=== PATIENT | female | born 1975 ===

== ENCOUNTER 2017-07-08 14:38 | Emergency (ER) | payer BC ==
[2017-07-08 15:38] LABS: Hematocrit 37 % (35-47); Hemoglobin 12.3 g/dl (12.0-16.0); Mean Corpuscular HGB Conc 34 g/dl (31-36); Mean Corpuscular Hemoglobin 31 pg (27-31); Mean Corpuscular Volume 91 fL (80-97); Mean Platelet Volume 8 um3 (7.4-10.4); Red Blood Count 4.03 10^6/ul (4.0-5.4); Red Cell Distribution Width 13 % (10.5-15); White Blood Count 14.1 10^3/ul (3.5-10.8)
[2017-07-08 15:55] LABS: ALT 9 U/L (7-52); AST 13 U/L (13-39); Albumin 4.2 g/dL (3.2-5.2); Alkaline Phosphatase 53 U/L (34-104); Anion Gap 8 mmol/L (2-11); BUN/Creatinine Ratio 18.5 (8-20); Blood Urea Nitrogen 17 mg/dL (6-24); C Reactive Protein 57.99 mg/L (< 5.00); CO2 Carbon Dioxide 24 mmol/L (22-32); Calcium 9.1 mg/dL (8.6-10.3); Chloride 104 mmol/L (101-111); EGFR African American 86.5 (>60); EGFR Non-African American 67.3 (>60); Globulin 2.5 g/dL (2-4); Glucose 91 mg/dL (70-100); Lipase 24 U/L (11.0-82.0); Potassium 3.6 mmol/L (3.5-5.0); Sodium 136 mmol/L (133-145); Total Protein 6.7 g/dL (6.4-8.9)
[2017-07-08] MEDS ORDERED: Ketorolac INJ* 30 MG/ML 1 ML VIAL IV ONE (16:12)
[2017-07-08 16:45] LABS: Urine Bilirubin Negative (Negative); Urine Glucose Negative (Negative); Urine Nitrite Negative (Negative)
[2017-07-08] MEDS ORDERED: Iohexol 300* (CONTRAST) 10 ML SDV IV ONE (18:23)
[2017-07-08] MEDS ORDERED: HYDROmorphone INJ* 1 MG/ML CARPUJECT SYRINGE IV ONE (19:00)
[2017-07-08] MEDS ORDERED: Ondansetron INJ* 2 MG/ML VIAL IV ONE (19:00)
--- NOTE | 2017-07-08 19:06 | RAD ---
INDICATION: Right lower quadrant abdominal pain. COMPARISON: There are no prior studies available for comparison. TECHNIQUE: A CT scan of the abdomen and pelvis was performed with intravenous and oral contrast following intravenous injection of 84 ml of Omnipaque 300 nonionic contrast. Contiguous axial sections were obtained from the lung bases through the symphysis pubis. Images were reconstructed in the coronal and sagittal planes. FINDINGS: The lung bases are clear. No pleural effusion is present. The liver and spleen are within normal limits in size without significant focal abnormality. No calcified gallstones are seen. The pancreas appears to be within normal limits in size. The kidneys and adrenal glands are normal in size. No hydronephrosis is seen. No significant focal renal abnormality is seen. The aorta is normal in caliber with mild calcific plaque present. No significant enlarged retroperitoneal lymph nodes are seen. The stomach, small and large bowel appear nondistended. The appendix is within normal limits. There is wall thickening and mild interstitial stranding in the medial wall of the cecum approximately at the junction with the distal ileum. Differential diagnosis would include diverticulitis, ileitis or a mass. Recommend colonoscopy for further evaluation. The uterus is anteverted and normal in size. No free intraperitoneal air or fluid is seen. No significant focal osseous abnormality is seen. IMPRESSION: THERE IS WALL THICKENING AND MILD INTERSTITIAL STRANDING IN THE CECUM APPROXIMATELY AT THE JUNCTION WITH THE DISTAL ILEUM. DIFFERENTIAL DIAGNOSIS WOULD INCLUDE DIVERTICULITIS, ILEITIS OR A MASS. RECOMMEND COLONOSCOPY FOR FURTHER EVALUATION.
[2017-07-08] MEDS ORDERED: Ciprofloxacin TAB* 500 MG PO ONE (19:18)
[2017-07-08] MEDS ORDERED: metroNIDAZOLE TAB* 250 MG PO ONE (19:18)
[2017-07-08] MEDS ORDERED: oxyCODONE/Acetamin 5/325 MG* TAB ONE (19:27)
[2017-07-08 19:42] VITALS: BP 111/71
--- NOTE | 2017-07-08 19:44 | ED ---
Vitaly Livingston Tecjoon, scribed for Daniel Joy MD on 07/08/17 at 1515 . Abdominal Pain/Female - HPI Summary HPI Summary: This patient is a 42 year old female presenting to [facility] accompanied by family with a chief complaint of central abdominal pain since approximately 2 days ago. Patient says the pain has worsened recently and describes it as cramping, with sharp bursts. The pain is rated 5/10 in severity. Symptoms aggravated by palpation, moving, ambulation. Symptoms alleviated by nothing. Patient additionally reports vomiting, loss of appetite. Patient denies nausea. - History of Current Complaint Chief Complaint: EDAbdPain Stated Complaint: ABD PAIN Hx Obtained From: Patient Hx Last Menstrual Period: last week Onset/Duration: Lasting Days, Still Present, Worse Since - today Timing: Constant Severity Currently: Moderate Pain Intensity: 5 Pain Scale Used: 0-10 Numeric Location: Diffuse, Umbilical Character: Sharp, Cramping Aggravating Factor(s): Movement, Other: - palpation, ambulation Associated Signs and Symptoms: Positive: Vomiting. Negative: Nausea Allergies/Adverse Reactions: Allergies Allergy/AdvReac Type Severity Reaction Status Date / Time No Known Allergies Allergy Verified 07/08/17 14:50 PMH/Surg Hx/FS Hx/Imm Hx Previously Healthy: Yes GI History: Denies: Hx Cirrhosis Opthamlomology History: Denies: Hx Legally Blind EENT History: Denies: Hx Deafness Infectious Disease History: No Infectious Disease History: Denies: Hx Hepatitis, Traveled Outside the [place] in Last 30 Days - Family History Known Family History: Negative: Cardiac Disease, Hypertension, Diabetes - Social History Alcohol Use: Occasionally Hx Substance Use: Yes Substance Use Type: Reports: Cocaine Substance Use Comment - Amount & Last Used: occasionally Hx Tobacco Use: Yes Smoking Status (MU): Current Some Day Smoker Review of Systems Negative: Fever Positive: Abdominal Pain, Vomiting. Negative: Nausea All Other Systems Reviewed And Are Negative: Yes Physical Exam - Summary Physical Exam Summary: Appearance: The patient is well-nourished in no acute distress and in no acute pain. Skin: The skin is warm and dry and skin color reflects adequate perfusion. HEENT: The head is normocephalic and atraumatic. The pupils are equal and reactive. The conjunctivae are clear and without drainage. Nares are patent and without drainage. Mouth reveals moist mucous membranes and the throat is without erythema and exudate. The external ears are intact. The ear canals are patent and without drainage. The tympanic membranes are intact. Neck: the neck is supple with full range of motion and non-tender. There are no carotid bruits. There is no neck vein distension. Respiratory: Chest is non-tender. Lungs are clear to auscultation and breath sounds are symmetrical and equal. Cardiovascular: Heart is regular rate and rhythm. There is no murmur or rub auscultated. There is no peripheral edema and pulses are symmetrical and equal. Abdomen: There are normal bowel sounds heard in all four quadrants and there is no organomegaly palpated. There is tenderness in the RLQ and LLQ. Slight bounding. Musculoskeletal: There is no back tenderness noted. Extremities are non-tender with full range of motion. There is good capillary refill. There is no peripheral edema or calf tenderness elicited. Neurological: Patient is alert and oriented to person, place and time. The patient has symmetrical motor strength in all four extremities. Cranial nerves are grossly intact. Deep tendon reflexes are symmetrical and equal in all four extremities. Psychiatric: The patient has an appropriate affect and does not exhibit any anxiety or depression. Triage Information Reviewed: Yes Vital Signs On Initial Exam: Initial Vitals Temp Pulse Resp BP Pulse Ox 97.2 F 81 17 108/61 97 07/08/17 14:47 07/08/17 14:47 07/08/17 14:47 07/08/17 14:47 07/08/17 14:47 Vital Signs Reviewed: Yes - [place] Coma Scale Coma Scale Total: 15 Diagnostics - Vital Signs Vital Signs Temp Pulse Resp BP Pulse Ox 07/08/17 14:47 97.2 F 81 17 108/61 97 - Laboratory Lab Results: Lab Results 07/08/17 07/08/17 07/08/17 Range/Units 15:27 15:27 15:27 WBC 14.1 H (3.5-10.8) 10^3/ul RBC 4.03 (4.0-5.4) 10^6/ul Hgb 12.3 (12.0-16.0) g/dl Hct 37 (35-47) % MCV 91 (80-97) fL MCH 31 (27-31) pg MCHC 34 (31-36) g/dl RDW 13 (10.5-15) % Plt Count 324 (150-450) 10^3/ul MPV 8 (7.4-10.4) um3 Neut % (Auto) 78.5 (38-83) % Lymph % (Auto) 13.7 L (25-47) % [place] % (Auto) 6.5 (1-9) % Eos % (Auto) 0.8 (0-6) % Baso % (Auto) 0.5 (0-2) % Absolute Neuts (auto) 11.0 H (1.5-7.7) 10^3/ul Absolute Lymphs (auto) 1.9 (1.0-4.8) 10^3/ul Absolute Monos (auto) 0.9 H (0-0.8) 10^3/ul Absolute Eos (auto) 0.1 (0-0.6) 10^3/ul Absolute Basos (auto) 0.1 (0-0.2) 10^3/ul Absolute Nucleated RBC 0 10^3/ul Nucleated RBC % 0 Sodium 136 (133-145) mmol/L Potassium 3.6 (3.5-5.0) mmol/L Chloride 104 (101-111) mmol/L Carbon Dioxide 24 (22-32) mmol/L Anion Gap 8 (2-11) mmol/L BUN 17 (6-24) mg/dL Creatinine 0.92 (0.51-0.95) mg/dL Est GFR ( Amer) 86.5 (>60) Est GFR (Non-Af Amer) 67.3 (>60) BUN/Creatinine Ratio 18.5 (8-20) Glucose 91 (70-100) mg/dL Lactic Acid 1.3 (0.5-2.0) mmol/L Calcium 9.1 (8.6-10.3) mg/dL Total Bilirubin 0.40 (0.2-1.0) mg/dL AST 13 (13-39) U/L ALT 9 (7-52) U/L Alkaline Phosphatase 53 (34-104) U/L C-Reactive Protein 57.99 H (< 5.00) mg/L Total Protein 6.7 (6.4-8.9) g/dL Albumin 4.2 (3.2-5.2) g/dL Globulin 2.5 (2-4) g/dL Albumin/Globulin Ratio 1.7 (1-3) Lipase 24 (11.0-82.0) U/L Beta HCG, Quant < 0.60 mIU/mL Urine Color Urine Appearance Urine pH (5-9) Ur Specific [place] (1.010-1.030) Urine Protein (Negative) Urine Ketones (Negative) Urine Blood (Negative) Urine Nitrate (Negative) Urine Bilirubin (Negative) Urine Urobilinogen (Negative) Ur Leukocyte Esterase (Negative) Urine Glucose (Negative) Urine Ascorbic Acid (Negative) 07/08/17 Range/Units 16:36 WBC (3.5-10.8) 10^3/ul RBC (4.0-5.4) 10^6/ul Hgb (12.0-16.0) g/dl Hct (35-47) % MCV (80-97) fL MCH (27-31) pg MCHC (31-36) g/dl RDW (10.5-15) % Plt Count (150-450) 10^3/ul MPV (7.4-10.4) um3 Neut % (Auto) (38-83) % Lymph % (Auto) (25-47) % [place] % (Auto) (1-9) % Eos % (Auto) (0-6) % Baso % (Auto) (0-2) % Absolute Neuts (auto) (1.5-7.7) 10^3/ul Absolute Lymphs (auto) (1.0-4.8) 10^3/ul Absolute Monos (auto) (0-0.8) 10^3/ul Absolute Eos (auto) (0-0.6) 10^3/ul Absolute Basos (auto) (0-0.2) 10^3/ul Absolute Nucleated RBC 10^3/ul Nucleated RBC % Sodium (133-145) mmol/L Potassium (3.5-5.0) mmol/L Chloride (101-111) mmol/L Carbon Dioxide (22-32) mmol/L Anion Gap (2-11) mmol/L BUN (6-24) mg/dL Creatinine (0.51-0.95) mg/dL Est GFR ( Amer) (>60) Est GFR (Non-Af Amer) (>60) BUN/Creatinine Ratio (8-20) Glucose (70-100) mg/dL Lactic Acid (0.5-2.0) mmol/L Calcium (8.6-10.3) mg/dL Total Bilirubin (0.2-1.0) mg/dL AST (13-39) U/L ALT (7-52) U/L Alkaline Phosphatase (34-104) U/L C-Reactive Protein (< 5.00) mg/L Total Protein (6.4-8.9) g/dL Albumin (3.2-5.2) g/dL Globulin (2-4) g/dL Albumin/Globulin Ratio (1-3) Lipase (11.0-82.0) U/L Beta HCG, Quant mIU/mL Urine Color Yellow Urine Appearance Clear Urine pH 6.0 (5-9) Ur Specific [place] 1.020 (1.010-1.030) Urine Protein Negative (Negative) Urine Ketones Negative (Negative) Urine Blood Negative (Negative) Urine Nitrate Negative (Negative) Urine Bilirubin Negative (Negative) Urine Urobilinogen Negative (Negative) Ur Leukocyte Esterase Negative (Negative) Urine Glucose Negative (Negative) Urine Ascorbic Acid * H (Negative) Result Diagrams: 07/08/17 15:27 07/08/17 15:27 Lab Statement: Any lab studies that have been ordered have been reviewed, and results considered in the medical decision making process. - Radiology CT Abd/Pel Xray Interpretation: Positive (See Comments) - IMPRESSION: THERE IS WALL THICKENING AND MILD INTERSTITIAL STRANDING IN THE CECUM APPROXIMATELY AT THE JUNCTION WITH THE DISTAL ILEUM. DIFFERENTIAL DIAGNOSIS WOULD INCLUDE DIVERTICULITIS, ILEITIS OR A MASS. RECOMMEND COLONOSCOPY FOR FURTHER EVALUATION. ED physician has reviewed this radiology report. Radiology Interpretation Completed By: Radiologist Abdominal Pain Fem Course/Dx - Course Course Of Treatment: Ms. Robbins presented with a couple days of low abdominal crampy pain with anorexia but no nausea. He number and frequency of stool has dropped off. She was tender in the R>L LQ's but not in the adnexae. She had a slight leukocytosis and elevation of her CRP. A CT revealed an equivocal finding of diverticulitis vs. ileitis vs. mass and recommended colonoscopy which I don't believe needs to happen emergently. 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 I will treat her for diverticulitis which will cover ileitis and if problems continue she will need to F/U for possible colonoscopy. - Diagnoses Provider Diagnoses: Diverticulitis Discharge - Discharge Plan Condition: Stable Disposition: HOME Prescriptions: Ciprofloxacin TAB* [Cipro Tab*] 500 mg PO BID #20 tab Metronidazole [Flagyl 500 MG TAB] 500 mg PO TID #30 tab oxyCODONE/Acetamin 5/325 MG* [Percocet 5/325 TAB*] 1 tab PO Q6H PRN #20 tab MDD 4 PRN Reason: Pain Patient Education Materials: Diverticulitis (ED) Referrals: Ceasar Tobias DO [Primary Care Provider] - 1 Week The documentation as recorded by the Vitaly lanza Tecjoon accurately reflects the service I personally performed and the decisions made by , Daniel Joy MD.
[2017-07-08] MEDS ORDERED: oxyCODONE/Acetamin 5/325 MG* TAB PO SCH (20:00)
== END 2017-07-08 19:40 | disposition home or self-care (01) ==
LOC: ED 14:38
DX: K57.32 Diverticulitis of large intestine without perforation or abscess without bleeding (principal); F17.200 Nicotine dependence, unspecified, uncomplicated
CPT/HCPCS: 36415; 74177; 80053; 81003; 83605; 83690; 84702; 85025; 86140; 96374; 96375; 99284; A9270-GY; J1170; J1885; J2405; Q9967